=== PATIENT | male | born 1960 | race Caucasian/White ===

== ENCOUNTER → 2018-07-23 | Outpatient (CLI) | payer OTHER ==
[~2018-07-23] MED LIST: ALBU90OI INH; AZIT250 PO; HYDACE5 PO
[2018-08-01 08:13] LABS: BRUSHITE 0.48 ratio (0.00-3.00); CALCIUM OXALATE 1.35 ratio (0.00-6.00); CHLORIDE URINE 70 (110-250); CITRIC ACID (CITRATE) 91 mg/L (Not Estab.); CITRIC ACID(CITRATE) 164 mg/24 hr (320-1240); CREATININE, URINE 1470.6 mg/24 hr (1000.0-2000.0); CREATININE, URINE 81.7 mg/dL (Not Estab.); MAGNESIUM, URINE 5.5 mg/dL (Not Estab.); MONOSODIUM URATE 2.26 ratio (0.00-4.00); OSMOLALITY, URINE 445 (300-900); SODIUM, URINE 49 mmol/L (Not Estab.); SODIUM, URINE 88 (58-337); STRUVITE 0.04 ratio (0.00-1.00); URIC ACID 0.93 ratio (0.00-1.20); URINE VOLUME 1800 mL/24 hr (800-1800); URINE VOLUME (PRESERVATIVE) 1800 mL/24 hr (800-1800)
== END | disposition home or self-care (01) ==
LOC: LAB 13:05 → LAB SHORT 13:05 → LAB FUT 07-22 16:40 → EDSTATUS 07-22 16:40
PROVIDERS: Urology
DX: N20.0 Calculus of kidney (principal)
CPT/HCPCS: 81003; 82131; 82140; 82340; 82436; 82507; 82570; 83735; 83935; 83945; 84105; 84133; 84300; 84392; 84560

== ENCOUNTER 2018-08-06 12:56 | Day surgery (SDC) | payer OTHER ==
[~2018-08-06] VITALS: Ht 175.3 cm; Wt 80.3 kg
--- NOTE | 2018-08-06 16:56 | NUR ---
08/06/18 1656 Keerthi Fagan LATE ENTRY FOR TODAY AT 1635 PATIENT REFUSED MULTIPLE OFFERS OF PO FLUIDS.
== END 2018-08-06 16:52 | disposition home or self-care (01) ==
LOC: ORSCSDS 12:56
PROVIDERS: Surgery
PROC: 0DBK8ZX Excision of Ascending Colon, Via Natural or Artificial Opening Endoscopic, Diagnostic (ICD-10-PCS; principal; 2018-08-06 14:30)
DX: Z12.11 Encounter for screening for malignant neoplasm of colon (principal); D12.2 Benign neoplasm of ascending colon; E78.00 Pure hypercholesterolemia, unspecified
CPT/HCPCS: 88305; J7120

== ENCOUNTER 2024-06-20 06:12 | Day surgery (SDC) | payer MEDICARE ==
[2024-06-20] VITALS (9 sets, daily range): BP systolic 132–151; BP diastolic 75–94
[~2024-06-20] VITALS: Ht 175.3 cm; Wt 117.9 kg
[~2024-06-20 06:12] MED LIST changes: +Crestor40 MG PO
[2024-06-20] MEDS ORDERED: CeFAZolin Sodium 2,000 MG in NS 100 ML IV SCH (06:25)
[2024-06-20] MEDS ORDERED: Lactated Ringer's 1,000 ML IV SCH (06:25)
[2024-06-20] MEDS ORDERED: CeFAZolin Sodium 2,000 MG VIAL ONE (06:48)
[2024-06-20] MEDS ORDERED: Ipratropium/Albuterol SulF 2.5-0.5MG/3 ML Amp INH ONE (06:50)
--- NOTE | 2024-06-20 07:00 | NUR ---
Ambulatory in Day Surgery History, Chart, Medications and Allergies reviewed before start of procedure. Pre-Op teaching done. Pt verbalizes understanding. Patient States Post-Procedure ride home has been arranged.
[2024-06-20] MEDS ORDERED: Bupivacaine 0.5% HCl 5 MG/ML 30MLVIAL ONE ×2 (07:03→08:38)
[2024-06-20] MEDS ORDERED: FentaNYL Citrate 50 MCG/ML 2 ML Injection ONE ×2 (07:13→07:50)
[2024-06-20] MEDS ORDERED: propofoL 20 ML IV ONE (07:13)
[2024-06-20] MEDS ORDERED: Rocuronium Bromide 10 MG/ML 5ML Injection IV ONE (07:15)
[2024-06-20] MEDS ORDERED: Dexamethasone Sod Phos 10 MG/ML 1ML VIAL ONE (07:30)
[2024-06-20] MEDS ORDERED: ePHEDrine Sulfate 50 MG/ML 1ML Injection ONE (07:37)
[2024-06-20] MEDS ORDERED: FentaNYL Citrate 50 MCG/ML 2 ML Injection IV PRN (07:55)
[2024-06-20] MEDS ORDERED: Ondansetron HCl 2 MG / ML 2ML Vial IV PRN (07:55)
[2024-06-20] MEDS ORDERED: Sugammadex Sodium 200 MG/2ML SDV (100 MG/ML) ONE (07:57)
[2024-06-20] MEDS ORDERED: Ketorolac Tromethamine 30mg Vial IV PRN (08:00)
[2024-06-20] MEDS ORDERED: HYDROcodone 5-APAP 325 TAB PO PRN (08:45)
--- NOTE | 2024-06-20 09:34 | NUR ---
Discharge instructions reviewed with patient. Patient verbalizes understanding. Copy given to patient to take home. Discharged via wheelchair to private car for ride home. ABD BINDER IN PLACE. GAUZE TO ABD X1 C/D/I. PT TOLERATED COFFEE AND YOGURT AND GAVE PAIN PILL PER ORDER.
== END 2024-06-20 09:36 | disposition home or self-care (01) ==
LOC: ORSCMMR 06:12 → ORD 07:30 → ORSCMMR 07:30
PROVIDERS: Surgery
PROC: 0WUF0JZ Supplement Abdominal Wall with Synthetic Substitute, Open Approach (ICD-10-PCS; principal; 2024-06-20 07:30)
DX: K42.0 Umbilical hernia with obstruction, without gangrene (principal); E78.5 Hyperlipidemia, unspecified; Z87.891 Personal history of nicotine dependence; E66.01 Morbid (severe) obesity due to excess calories; Z68.38 Body mass index [BMI] 38.0-38.9, adult
CPT/HCPCS: A9270; C1781; J0690; J1100; J2704; J3010; J7120

== ENCOUNTER 2024-09-10 11:55 | Day surgery (SDC) | payer MEDICARE ==
[~2024-09-10] VITALS: Ht 175.3 cm; Wt 121.7 kg
[~2024-09-10 11:55] MED LIST changes: +ROSUVASTATIN CAL5 MG PO
[2024-09-10] MEDS ORDERED: propofoL 50 ML IV ONE (12:00)
[2024-09-10] MEDS ORDERED: Lactated Ringer's 1,000 ML IV ONE ×2 (12:00→13:01)
[2024-09-10] MEDS ORDERED: Ipratropium/Albuterol SulF 2.5-0.5MG/3 ML Amp ONE (13:02)
--- NOTE | 2024-09-10 13:14 | NUR ---
09/10/24 1314 Carlito Arias WHEEZES NOTED THROUGHOUT LUNG BILATERALLY. MD VERBALLY ORDERED A DUO-NEB TX IN PRE-OP BEFORE PROCEDURE. DUO-CARLA GIVEN PER ORDERS.
[2024-09-10] MEDS ORDERED: Ondansetron HCl 2 MG / ML 2ML Vial ONE (14:24)
[2024-09-10 14:48] VITALS: BP 128/66
== END 2024-09-10 14:51 | disposition home or self-care (01) ==
LOC: ORSCSDS 11:55
PROVIDERS: Surgery
PROC: 0DBL8ZX Excision of Transverse Colon, Via Natural or Artificial Opening Endoscopic, Diagnostic (ICD-10-PCS; principal; 2024-09-10 13:30)
PROC: 0DBK8ZX Excision of Ascending Colon, Via Natural or Artificial Opening Endoscopic, Diagnostic (ICD-10-PCS; principal; 2024-09-10 13:30)
PROC: 0DBH8ZX Excision of Cecum, Via Natural or Artificial Opening Endoscopic, Diagnostic (ICD-10-PCS; principal; 2024-09-10 13:30)
DX: Z12.11 Encounter for screening for malignant neoplasm of colon (principal); Z86.0101 Personal history of adenomatous and serrated colon polyps; D12.3 Benign neoplasm of transverse colon; D12.2 Benign neoplasm of ascending colon; D12.0 Benign neoplasm of cecum; E78.2 Mixed hyperlipidemia; Z79.899 Other long term (current) drug therapy; Z87.891 Personal history of nicotine dependence
CPT/HCPCS: 88305; J2405; J2704; J7120